=== PATIENT | female | born 1990 | race Caucasian/White ===

== ENCOUNTER 2017-08-28 10:30 | Emergency (ER) | payer MEDICAID, OTHER ==
[~2017-08-28] VITALS: Ht 162.6 cm; Wt 58.0 kg
[~2017-08-28 10:30] MED LIST: BUPR2SUB PO
[2017-08-28 10:40] VITALS: BP 120/78; PULSE 76; RESP 18; TEMP 97.7; O2SAT 99
[2017-08-28] MEDS ORDERED: IBUPROFEN 600 MG TAB PO ONE (10:45)
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
[2017-08-28] MEDS ORDERED: IBUP-232 PO (12:00)
[2017-08-28 12:16] VITALS: RESP 18
[2017-08-28 12:24] VITALS: BP 118/70
== END 2017-08-28 12:25 | disposition home or self-care (01) ==
LOC: NEPD 10:30
DX: S83.92XA Sprain of unspecified site of left knee, initial encounter (principal); R07.89 Other chest pain; S01.511A Laceration without foreign body of lip, initial encounter; M54.2 Cervicalgia; R06.02 Shortness of breath; F17.200 Nicotine dependence, unspecified, uncomplicated; V47.5XXA Car driver injured in collision with fixed or stationary object in traffic accident, initial encounter
CPT/HCPCS: 71045; 73564; 99283